=== PATIENT | male | born 1985 | race American Indian/Alaskan Native ===

== ENCOUNTER 2016-04-14 22:06 | Emergency (ER) | payer SELFPAY ==
[2016-04-15 03:07] VITALS: BP 138/83
[2016-04-15] MEDS ORDERED: TORADOL IM STA (03:47)
--- NOTE | 2016-04-15 03:48 | Emergency Department Report ---
ED General Adult HPI - General Chief complaint: High BP Stated complaint: DIZZINESS Source: patient Mode of arrival: Ambulatory Limitations: No Limitations - History of Present Illness Initial comments: This is a 30-year-old male, previously unknown to me. He does not have a local primary care doctor. He has a past medical history of hypertension. He was on HCTZ, but has not taken the medication since October. He ran out of it. Patient presents to the ER with resolved nasal bleeding. The nasal bleeding was in the bilateral nostrils. It was yesterday. He was atraumatic. He denies cocaine use. Patient reports at the nasal bleeding was very distressing, he contacted 911, was found to have elevated blood pressure/ hypertension. This has since resolved. The patient does admit to chronic headache. It has been present for years. The headache is throbbing and achy. He has no exacerbating factors that he can recall, he cannot describe relieving factors. There is no neck pain or neck stiffness. The headache is not sudden or thunderclap in nature. It did not reach maximal intensity within an hour. There is no weakness. There is no numbness. -: Gradual Location: head Severity scale (0 -10): 0 Quality: aching Consistency: intermittent Improves with: none Worsens with: none Associated Symptoms: headaches. denies: confusion, chest pain, cough, diaphoresis, fever/chills, loss of appetite, malaise, nausea/vomiting, rash, seizure, shortness of breath, syncope, weakness - Related Data Previous Rx's Medication Instructions Recorded Last Taken Type Fluticasone [Flonase] 1 spray NS QDAY #1 bottle 04/15/16 Unknown Rx Hydrochlorothiazide [HCTZ] 25 mg PO QDAY #30 tablet 04/15/16 Unknown Rx Allergies Allergy/AdvReac Type Severity Reaction Status Date / Time No Known Allergies Allergy Verified 04/14/16 22:23 ED Review of Systems ROS: Stated complaint: DIZZINESS Other details as noted in HPI Constitutional: denies: fever Eyes: denies: eye discharge ENT: epistaxis Respiratory: denies: cough, shortness of breath, wheezing Cardiovascular: denies: chest pain, palpitations Gastrointestinal: denies: abdominal pain, nausea, diarrhea Genitourinary: denies: urgency, dysuria Musculoskeletal: denies: back pain, joint swelling, arthralgia Skin: denies: rash, lesions Neurological: headache ED Past Medical Hx - Past Medical History Hx Hypertension: Yes Hx Psychiatric Treatment: Yes (Depression) - Surgical History Additional Surgical History: Hernia - Social History Smoking Status: Never Smoker Substance Use Type: Alcohol - Medications Home Medications: Home Medications Medication Instructions Recorded Confirmed Last Taken Type Fluticasone [Flonase] 1 spray NS QDAY #1 bottle 04/15/16 Unknown Rx Hydrochlorothiazide [HCTZ] 25 mg PO QDAY #30 tablet 04/15/16 Unknown Rx ED Physical Exam - General Limitations: No Limitations General appearance: alert, in no apparent distress - Head Head exam: Present: atraumatic, normocephalic - Eye Eye exam: Present: normal appearance, PERRL, EOMI. Absent: nystagmus - ENT ENT exam: Present: normal exam, normal orophraynx, mucous membranes moist - Neck Neck exam: Present: normal inspection, full ROM. Absent: tenderness, meningismus - Respiratory Respiratory exam: Present: normal lung sounds bilaterally. Absent: respiratory distress, wheezes, rales, rhonchi, stridor, chest wall tenderness - Cardiovascular Cardiovascular Exam: Present: regular rate, normal rhythm, normal heart sounds. Absent: bradycardia, tachycardia, irregular rhythm, systolic murmur, diastolic murmur, rubs, gallop - GI/Abdominal GI/Abdominal exam: Present: soft, normal bowel sounds. Absent: distended, tenderness, guarding, rebound, rigid, pulsatile mass - Rectal Rectal exam: Present: deferred - Extremities Exam Extremities exam: Present: normal inspection, full ROM, normal capillary refill. Absent: tenderness, pedal edema, joint swelling, calf tenderness - Back Exam Back exam: Present: normal inspection, full ROM. Absent: tenderness, CVA tenderness (R), CVA tenderness (L), muscle spasm, paraspinal tenderness, vertebral tenderness - Neurological Exam Neurological exam: Present: alert, oriented X3, normal gait, other (Extraocular movements intact. Tongue midline. No facial droop. Facial sensation intact to light touch in the V1, V2, V3 distribution bilaterally. 5 and 5 strength in 4 extremities.. Sensation is intact to light touch in 4 extremities.). Absent : motor sensory deficit - Psychiatric Psychiatric exam: Present: normal affect, normal mood - Skin Skin exam: Present: warm, dry, intact, normal color. Absent: rash ED Course Vital Signs 04/14/16 04/15/16 04/15/16 22:23 01:26 02:23 Temperature 99.1 F 98 F Pulse Rate 72 59 L Respiratory 14 14 Rate Blood Pressure 145/105 Blood Pressure 140/94 [Left] O2 Sat by Pulse 98 100 99 Oximetry 04/15/16 03:07 Temperature Pulse Rate 60 Respiratory 14 Rate Blood Pressure Blood Pressure 138/83 [Left] O2 Sat by Pulse 99 Oximetry - Reevaluation(s) Reevaluation #1: 04/15/16 04:23 04/15/16 04:21 Differential diagnosis: Resolved epistaxis, resolved hypertension, migraine headache, tension headache, cluster headache Assessment and plan: 30-year-old male with multiple chronic complaints. Nasal bleeding has resolved. Hypertension is chronic. Headache is chronic. Hypertension is improved prior to my evaluation. He is sleeping comfortably upon my initial evaluation. He has a GCS of 15, with an NIH score of 0, and an unremarkable physical exam. I will give him a one-month refill for his blood pressure medication. He was instructed that his nasal bleeding may recur. He was instructed on how to manage it by himself he needs to. He will be referred to outpatient primary care. Given chronicity of symptoms, normal neurologic exam, essentially normal vital signs at this time, I don't believe the patient requires advanced imaging ED Medical Decision Making - Lab Data Vital Signs 04/14/16 04/15/16 04/15/16 22:23 01:26 02:23 Temperature 99.1 F 98 F Pulse Rate 72 59 L Respiratory 14 14 Rate Blood Pressure 145/105 Blood Pressure 140/94 [Left] O2 Sat by Pulse 98 100 99 Oximetry 04/15/16 03:07 Temperature Pulse Rate 60 Respiratory 14 Rate Blood Pressure Blood Pressure 138/83 [Left] O2 Sat by Pulse 99 Oximetry Critical care attestation.: If time is entered above; I have spent that time in minutes in the direct care of this critically ill patient, excluding procedure time. ED Disposition Clinical Impression: Elevated blood pressure Disposition: DISCHARGED TO HOME OR SELFCARE Is pt being admited?: No Does the pt Need Aspirin: No Condition: Stable Instructions: Epistaxis (ED), Hypertension (ED) Additional Instructions: Take the medications as directed. Follow-up with the primary care doctor within the next 2 weeks. It is very important to take your outpatient blood pressure medication. Long-term complications of hypertension includes stroke, heart attack, disability, , paralysis, loss of quality of life. Dr. Valdes is local primary care doctor. [facility] medical clinic. Return to the ER right away with severe headache, chest pain, shortness of breath, nausea, vomiting, unsteady gait, change in mental status. Prescriptions: Fluticasone [Flonase] 1 spray NS QDAY #1 bottle Hydrochlorothiazide [HCTZ] 25 mg PO QDAY #30 tablet Referrals: PRIMARY CAREMD [Primary Care Provider] - 3-5 Days MK VALDES MD [Staff Physician] - 3-5 Days [facility] [Provider Group] - 3-5 Days
== END 2016-04-15 04:41 | disposition home or self-care (01) ==
LOC: ED 22:06
DX: I10 Essential (primary) hypertension (principal); R51 Headache
CPT/HCPCS: 96372; 99283; J1885

== ENCOUNTER 2017-02-20 22:40 | Emergency (ER) | payer OTHER ==
[2017-02-21 00:13] LABS: Anion Gap 12 mmol/L; BUN/Creatinine Ratio 9; Blood Urea Nitrogen 10 mg/dL (9-20); Carbon Dioxide 31 mmol/L (22-30); Chloride 100.6 mmol/L (98-107); Glucose 95 mg/dL (75-100); Potassium 3.9 mmol/L (3.6-5.0); Sodium 140 mmol/L (137-145)
[2017-02-21 00:24] LABS: Basophils % (Auto) 0.6 % (0.0-1.8); Eosinophils % (Auto) 1.9 % (0.0-4.3); Hematocrit 46.2 % (35.5-45.6); Hemoglobin 15.3 gm/dl (11.8-15.2); Mean Corpuscular HGB Conc 33 % (32-34); Mean Corpuscular Hemoglobin 31 pg (28-32); Mean Corpuscular Volume 93 fl (84-94); Platelet Count 176 K/mm3 (140-440); Red Blood Count 4.96 M/mm3 (3.65-5.03); Red Cell Distribution Width 13.6 % (13.2-15.2); White Blood Count 5.5 K/mm3 (4.5-11.0)
--- NOTE | 2017-02-21 06:25 | Emergency Department Report ---
HPI - General Chief Complaint: Syncope Time Seen by Provider: 02/21/17 06:02 - HPI HPI: This is a 31-year-old -[place] male who presents to the emergency department after passing out at work. This was witnessed by 3 other coworkers who helped get him off of the ground. Prior passing out the patient felt like he was a little bit lightheaded and therefore went and ate some food thinking maybe he was having low blood sugar. He was also slightly dizzy after passing out but that has since resolved. He did not take anything for his symptoms prior to presentation. Currently the patient is asymptomatic. While he has not had any headache today or last night in conjunction with this episode of passing out, the patient does say that he has a history now of left-sided headaches that occur 2-3 times per week. He denies any vision change, slurred speech, chest pain, shortness of breath, fever. He does not have a primary care physician. He denies tobacco or alcohol abuse. Occasionally he'll smoke marijuana. No recent travel or sick contacts at home. ED Past Medical Hx - Past Medical History Hx Hypertension: Yes Hx Psychiatric Treatment: Yes (Depression) - Surgical History Additional Surgical History: Hernia - Social History Smoking Status: Never Smoker Substance Use Type: None - Medications Home Medications: Home Medications Medication Instructions Recorded Confirmed Last Taken Type Fluticasone [Flonase] 1 spray NS QDAY #1 bottle 04/15/16 Unknown Rx Hydrochlorothiazide [HCTZ] 25 mg PO QDAY #30 tablet 04/15/16 Unknown Rx ED Review of Systems ROS: Stated complaint: SYNCOPY Other details as noted in HPI Comment: All other systems reviewed and negative Constitutional: denies: chills, fever Eyes: denies: eye pain, eye discharge, vision change ENT: denies: ear pain, throat pain Respiratory: denies: cough, shortness of breath, wheezing Cardiovascular: syncope. denies: chest pain, palpitations Gastrointestinal: denies: abdominal pain, nausea, diarrhea Genitourinary: denies: urgency, dysuria Musculoskeletal: denies: back pain, joint swelling, arthralgia Skin: denies: rash, lesions Neurological: denies: numbness, confusion, vertigo Physical Exam - Physical Exam Vital Signs: Vital Signs 02/20/17 23:24 Temperature 98.5 F Pulse Rate 80 Respiratory 18 Rate Blood Pressure 136/76 O2 Sat by Pulse 98 Oximetry Physical Exam: GENERAL: The patient is well-developed well-nourished. HENT: Normocephalic. Atraumatic. Patient has moist mucous membranes. EYES: Extraocular motions are intact. Pupils equal reactive to light bilaterally. No nystagmus. NECK: Supple. Trachea is midline. CHEST/LUNGS: Clear to auscultation. There is no respiratory distress noted. HEART/CARDIOVASCULAR: Regular. There is no tachycardia. There is no gallop rub or murmur. ABDOMEN: Abdomen is soft, nontender. Patient has normal bowel sounds. There is no abdominal distention. SKIN: Skin is warm and dry. NEURO: The patient is awake, alert, and oriented. The patient is cooperative. The patient has no focal neurologic deficits. The patient has normal speech. Cranial nerves intact 2 through 12. The pronator drift. No dysmetria. Normal gait. MUSCULOSKELETAL: There is no tenderness or deformity. There is no limitation range of motion. There is no evidence of acute injury. Muscle strength 5/5 upper and lower extremity bilaterally. ED Course Vital Signs 02/20/17 23:24 Temperature 98.5 F Pulse Rate 80 Respiratory 18 Rate Blood Pressure 136/76 O2 Sat by Pulse 98 Oximetry ED Medical Decision Making - Lab Data Result diagrams: 02/20/17 23:38 02/20/17 23:38 - EKG Data -: EKG Interpreted by Fl EKG shows normal: sinus rhythm, axis, intervals, QRS complexes, ST-T waves Rate: normal - EKG Data When compared to previous EKG there are: previous EKG unavailable Interpretation: normal EKG - Radiology Data Radiology results: report reviewed CT of the head does not show any acute intracranial process including no ischemia, shift, mass, bleeding or skull fracture. - Medical Decision Making 31-year-old male presents after having a syncopal episode at work tonight. Although he did not have a headache leading up to this episode, he does complain of some intermittent left-sided headaches. He has never been diagnosed with migraines or any other headache conditions. On physical exam he does not have any focal, motor or sensory deficits and his cranial nerves are intact. A CT of the head was done that did not show any bleed, shift, mass or any acute process. Labs are unremarkable and do not show any etiology of his symptoms. Vital signs stable throughout his ED course. He has been reevaluated multiple times for multiple hours and there has been no further syncopal episodes. He appears safe for discharge home at this time. He'll be given a referral for primary care and neurology. He will return to the ER with any worsening of his symptoms or any acute distress. Discharge instructions were given while in the emergency department and all questions have been answered. - Differential Diagnosis migraine, vasovagal, orthostatic hypotension, seizure Critical Care Time: No Critical care attestation.: If time is entered above; I have spent that time in minutes in the direct care of this critically ill patient, excluding procedure time. ED Disposition Clinical Impression: Syncope Qualifiers: Syncope type: unspecified Qualified Code(s): R55 - Syncope and collapse Disposition: TO HOME OR SELFCARE Is pt being admited?: No Condition: Stable Instructions: Syncope (ED) Additional Instructions: Follow-up with a primary care physician in the next few days if possible. I have given you a referral for a local neurologist, Dr. Knight, to follow up regarding your recurrent headaches. Return to the emergency department with any further episodes of passing out or with any acute distress. Referrals: DANGELO BUITRAGO MD [Primary Care Provider] - 3-5 Days KARYNA BOTELLO MD [Referring] - 3-5 Days MITCHELL KNIGHT MD [Staff Physician] - 3-5 Days Forms: Work/School Release Form(ED) Time of Disposition: 07:32
[2017-02-21 06:37] LABS: Bilirubin,Urine NEG (Negative); Blood,Urine SM (Negative); Ketones,Urine NEG (Negative); Leukocyte Esterase,Urine NEG (Negative); Mucus,Urine FEW /HPF; Nitrite,Urine NEG (Negative); Protein,Urine <15 mg/dL mg/dL (Negative); Urobilinogen,Urine < 2.0 mg/dL (<2.0)
--- NOTE | 2017-02-21 07:21 | Cat Scan Report ---
FINAL REPORT EXAM: CT HEAD/BRAIN W/O CONTRAST HISTORY: Headache, Syncope. TECHNIQUE: Unenhanced axial CT images of the brain were obtained. No prior studies are available for comparison. FINDINGS: The cortical sulci and ventricles are within normal limits for patient's age. The rios-white differentiation is maintained. There is no extra-axial fluid collection, mass, mass effect, midline shift, hydrocephalus, or acute intracranial hemorrhage. There is a 0.8 cm mucous retention cyst or polyp in the left frontal sinus. The remainder of the visualized paranasal sinuses and mastoid air cells are clear. There is no skull fracture or other osseous abnormality. The visualized orbits and globes are grossly unremarkable. IMPRESSION: No acute intracranial abnormality.
[2017-02-21 07:55] VITALS: BP 117/63
== END 2017-02-21 07:48 | disposition home or self-care (01) ==
LOC: ED 22:40
DX: R55 Syncope and collapse (principal); I10 Essential (primary) hypertension
CPT/HCPCS: 36415; 70450; 80048; 81001; 84484; 85025; 93005; 93010

== ENCOUNTER 2017-06-08 09:45 | Emergency (ER) | payer OTHER ==
[2017-06-08 10:18] VITALS: BP 130/91
--- NOTE | 2017-06-08 12:02 | Emergency Department Report ---
Minor Respiratory - HPI Chief Complaint: Upper Respiratory Infection Stated Complaint: FLU LIKE SYMPTOMS Time Seen by Provider: 06/08/17 10:29 Duration: 3 Days Pain Location: Throat (sore) Severity: mild Minor Respiratory: Yes Rhinorrhea, Yes Sore Throat, Yes Able to Tolerate Fluids , Yes Cough, Yes Sick Contacts, Yes Fever, No Ear Pain, No Hemoptysis, No Chest Pain, No Shortness of Breath Other History: This is a 31 y.o. male that presents with cough, rhinorrhea, fever, sore throat, and chills for 3 days. Reports cough cause chest tightness but no pain. He is currently not taking anything for symptoms. He is eating oranges and increase fluids but still feel bad. Denies chest pain, SOB, body aches, and N/V. ED Review of Systems ROS: Stated complaint: FLU LIKE SYMPTOMS Other details as noted in HPI Constitutional: chills, fever. denies: diaphoresis, malaise, weakness ENT: throat pain (sore throat), congestion. denies: ear pain, dental pain, hearing loss, epistaxis Respiratory: cough. denies: shortness of breath, wheezing Cardiovascular: denies: chest pain, palpitations Gastrointestinal: denies: abdominal pain, nausea, vomiting, diarrhea Musculoskeletal: denies: back pain, joint swelling, arthralgia, myalgia Neurological: headache. denies: weakness, paresthesias Psychiatric: denies: anxiety, depression ED Past Medical Hx - Past Medical History Hx Hypertension: Yes Hx Psychiatric Treatment: Yes (Depression) - Surgical History Additional Surgical History: Hernia - Social History Smoking Status: Never Smoker Substance Use Type: Marijuana - Medications Home Medications: Home Medications Medication Instructions Recorded Confirmed Last Taken Type Fluticasone [Flonase] 1 spray NS QDAY #1 bottle 04/15/16 Unknown Rx Hydrochlorothiazide [HCTZ] 25 mg PO QDAY #30 tablet 04/15/16 Unknown Rx Benzonatate 200 mg PO TID PRN #30 capsule 06/08/17 Unknown Rx Fluticasone [Flonase] 1 spray NS QDAY #1 bottle 06/08/17 Unknown Rx Minor Respiratory Exam - Exam General: Vital signs noted. No distress. Alert and acting appropriately. HEENT: Yes Pharyngeal Erythema, Yes Moist Mucous Membranes, Yes Rhinorrhea ( clear discharge), No Pharyngeal Exudates, No Conjuctival Injection, No Frontal Tenderness, No Maxillary Tenderness Ear: Neither TM Bulge, Neither TM Erythema, Neither EAC Pain, Neither EAC Discharge Neck: Yes Supple, No Adenopathy Lungs: Yes Good Air Exchange, Yes Cough (worse on right), No Wheezes, No Ronchi , No Stridor, No Labored Respirations, No Retractions, No Use of Accessory Muscles, No Other Abnormal Lung Sounds Heart: Yes Regular, No Murmur Abdomen: Yes Normal Bowel Sounds, No Tenderness, No Peritoneal Signs Skin: No Rash, No Edema Neurologic: Alert and oriented, no deficits. Musculoskeletal: Unremarkable. ED Course Vital Signs 06/08/17 10:14 Temperature 99 F Pulse Rate 89 Respiratory 20 Rate Blood Pressure 130/91 O2 Sat by Pulse 95 Oximetry ED Medical Decision Making - Medical Decision Making 31 y.o. male that presents with URI symptoms. Patient examined by me and stable. No distress noted. Physical assessment susceptible of nasopharyngitis. Vitals stable. Discharged home. Encouraged to do supportive care for URI. Start benzonatate 200 mg po tid PRN, and flonase. Return to work tomorrow. Critical care attestation.: If time is entered above; I have spent that time in minutes in the direct care of this critically ill patient, excluding procedure time. ED Disposition Clinical Impression: Upper respiratory infection Qualifiers: URI type: acute nasopharyngitis (common cold) Qualified Code(s): J00 - Acute nasopharyngitis [common cold] Disposition: TO HOME OR SELFCARE Is pt being admited?: No Does the pt Need Aspirin: No Condition: Stable Instructions: Upper Respiratory Infection (ED), Cold Symptoms (ED) Additional Instructions: Increase fluid intake and rest. Wash hands frequently. Continue taking tylenol or ibuprofen to control fever. F/U with Primary Care Provider. Return to ER if fever, SOB, or difficulty breathing after 48 hours of supportive care. Prescriptions: Benzonatate 200 mg PO TID PRN #30 capsule PRN Reason: Cough Fluticasone [Flonase] 1 spray NS QDAY #1 bottle Referrals: [facility] [address] [Outside] - 3-5 Days [facility] [Outside] - 3-5 Days [facility] [Outside] - 3-5 Days Forms: Work/School Release Form(ED) Time of Disposition: 12:06 Print Language: LEBANESE
== END 2017-06-08 12:21 | disposition home or self-care (01) ==
LOC: ED 09:45
DX: J00 Acute nasopharyngitis [common cold] (principal); I10 Essential (primary) hypertension; F12.10 Cannabis abuse, uncomplicated; F32.9 Major depressive disorder, single episode, unspecified
CPT/HCPCS: 99282

== ENCOUNTER 2017-06-26 21:03 | Emergency (ER) | payer OTHER ==
[2017-06-26] MEDS ORDERED: ASPIRIN PO ONE (21:16)
[2017-06-26 21:36] LABS: Basophils % (Auto) 0.2 % (0.0-1.8); Eosinophils # (Auto) 0.1 K/mm3 (0.0-0.4); Eosinophils % (Auto) 1.5 % (0.0-4.3); Hematocrit 51.1 % (35.5-45.6); Hemoglobin 16.7 gm/dl (11.8-15.2); Lymphocytes # (Auto) 1.3 K/mm3 (1.2-5.4); Lymphocytes % (Auto) 16.9 % (13.4-35.0); Mean Corpuscular HGB Conc 33 % (32-34); Mean Corpuscular Hemoglobin 31 pg (28-32); Mean Corpuscular Volume 93 fl (84-94); Monocytes # (Auto) 0.6 K/mm3 (0.0-0.8); Monocytes % (Auto) 7.9 % (0.0-7.3); Platelet Count 181 K/mm3 (140-440); Red Blood Count 5.47 M/mm3 (3.65-5.03); Red Cell Distribution Width 14.2 % (13.2-15.2)
[2017-06-26] MEDS ORDERED: NACL 0.9% 1000 ML 1,000 ML IV ONE (21:49)
[2017-06-26] MEDS ORDERED: APRESOLINE IV ONE (21:49)
[2017-06-26 21:53] LABS: Alanine Aminotransferase 19 units/L (7-56); Albumin 4.4 g/dL (3.9-5); BUN/Creatinine Ratio 9; Blood Urea Nitrogen 11 mg/dL (9-20); Calcium 9.2 mg/dL (8.4-10.2); Hemolysis Index 11
[2017-06-26 22:11] VITALS: BP 141/85
[2017-06-27 00:24] LABS: Bilirubin,Urine NEG (Negative); Blood,Urine NEG (Negative); Color,Urine Straw (Yellow); Protein,Urine <15 mg/dL mg/dL (Negative); Urobilinogen,Urine < 2.0 mg/dL (<2.0)
--- NOTE | 2017-06-27 00:38 | Emergency Department Report ---
HPI - General Chief Complaint: Syncope Time Seen by Provider: 06/26/17 21:35 - HPI HPI: The patient is a 31-year-old male who presents for evaluation of dizziness and lightheadedness. The patient states that since awakening this morning at 8 AM, approximately 12 hours prior to my evaluation, the patient has experienced waxing and waning lightheadedness, severe, exacerbated with position changes or exertion, and improved with lying down and rest. He shares that he passed out this evening after the symptoms recurred. He also passed out in the ED lobby while waiting evaluation, but he denies trauma to his head, head injury, headache, neck pain, neck stiffness, back pain, chest pain, dyspnea, abdominal pain, vision or hearing changes, smell or taste changes, paresthesias, facial drooping, slurred speech, seizure-like activity, urine or bowel incontinence or retention, or other focal neurological deficit. ED Past Medical Hx - Past Medical History Previous Medical History?: Yes Hx Hypertension: Yes Hx Diabetes: Yes (boderline) Hx Psychiatric Treatment: Yes (Depression) - Surgical History Past Surgical History?: Yes Additional Surgical History: Hernia - Social History Smoking Status: Never Smoker Substance Use Type: Marijuana - Medications Home Medications: Home Medications Medication Instructions Recorded Confirmed Last Taken Type Fluticasone [Flonase] 1 spray NS QDAY #1 bottle 04/15/16 Unknown Rx Hydrochlorothiazide [HCTZ] 25 mg PO QDAY #30 tablet 04/15/16 Unknown Rx Benzonatate 200 mg PO TID PRN #30 capsule 06/08/17 Unknown Rx Fluticasone [Flonase] 1 spray NS QDAY #1 bottle 06/08/17 Unknown Rx Hydrochlorothiazide [HCTZ] 25 mg PO QDAY #30 tablet 06/27/17 Unknown Rx Lisinopril [Zestril TAB] 5 mg PO QDAY #31 tablet 06/27/17 Unknown Rx ED Review of Systems ROS: Stated complaint: SYNCOPE Other details as noted in HPI Constitutional: Reports dizziness and syncope denies: fever ENT: denies: throat or neck pain Respiratory: denies: cough, shortness of breath Cardiovascular: denies: chest pain Endocrine: denies unexplained weight loss or gain Gastrointestinal: denies: abdominal pain, nausea Genitourinary: denies: dysuria Musculoskeletal: denies: leg swelling Skin: denies: rash Neurological: denies: headache Hematological/Lymphatic: denies: easy bleeding or easy bruising Psych: denies sadness or hopelessness Physical Exam - Physical Exam Vital Signs: Vital Signs 06/26/17 06/26/17 21:12 22:10 Temperature 98.2 F Pulse Rate 82 85 Respiratory 18 16 Rate Blood Pressure 154/104 Blood Pressure 141/85 [Left] O2 Sat by Pulse 100 100 Oximetry Physical Exam: General: well-nourished, well-developed, no acute distress Head: Normocephalic, atraumatic Eyes: normal sclera, PERRL, EOM intact ENT: Mucous membranes are pale and dry Neck: No neck stiffness, no cervical adenopathy Respiratory: Breath sounds equal bilaterally, no wheezing, rales, or rhonchi Cardio: S1 and S2 present, no murmurs, rubs, gallops, capillary refill is delayed Abdomen: Normoactive bowel sounds, soft abdomen, no rigidity, no guarding or rebound tenderness Chest WALL/Back: No tenderness to palpation of the chest wall, no CVA tenderness with percussion Musc: No pitting edema Skin: No rash Neuro: alert oriented x4, normal cognition, speech normal, no facial drooping, no uvula or tongue deviation on protrusion, no deficit with rotation of neck or shoulder shrug, no obvious gross motor deficit in the upper or lower extremities with flexion or extension at the shoulder, elbow, wrist, hip, knee, or ankle bilaterally, no obvious gross sensation deficit to crude touch or 2 pt discrimination, 2+ symmetric reflexes on DTR testing, no coordination deficit with [id number] or [id number] testing, romberg negative, patient able to to ambulate without abnormal gait Psych: Normal affect ED Course Vital Signs 06/26/17 06/26/17 21:12 22:10 Temperature 98.2 F Pulse Rate 82 85 Respiratory 18 16 Rate Blood Pressure 154/104 Blood Pressure 141/85 [Left] O2 Sat by Pulse 100 100 Oximetry ED Medical Decision Making - Lab Data Result diagrams: 06/26/17 21:22 06/26/17 21:22 - Medical Decision Making The patient was seen and examined by myself. The patient is placed on a cardiac rehabilitation program director and continuous pulse ox. On initial evaluation, the patient was found to be in no distress. Evaluation orders were placed. EKG exhibited normal sinus rhythm and rate, and was negative for concerning arrhythmia. Lab results reveal elevated RBC, hemoglobin, and hematocrit, consistent with hemoconcentration and exam findings of dehydration, and otherwise labs were grossly unremarkable. The patient is given 1 L normal saline fluid bolus for treatment of dehydration. The patient was reevaluated and reported that their symptoms were markedly improved. The patient is stable for discharge with outpatient follow-up. The patient is given follow-up and return instructions. The patient expressed understanding and agreed with the plan. The patient is discharged in stable condition. Critical care attestation.: If time is entered above; I have spent that time in minutes in the direct care of this critically ill patient, excluding procedure time. ED Disposition Clinical Impression: Dehydration, Orthostatic syncope Disposition: DC-01 TO HOME OR SELFCARE Is pt being admited?: No Does the pt Need Aspirin: No Condition: Stable Instructions: Dehydration (ED), Syncope (ED), Chronic Hypertension (ED) Prescriptions: Hydrochlorothiazide [HCTZ] 25 mg PO QDAY #30 tablet Lisinopril [Zestril TAB] 5 mg PO QDAY #31 tablet Referrals: CHAYO PADGETT MD [Primary Care Provider] - 3-5 Days Time of Disposition: 00:04
== END 2017-06-27 01:15 | disposition home or self-care (01) ==
LOC: ED 21:03
DX: E86.0 Dehydration (principal); I10 Essential (primary) hypertension; E11.9 Type 2 diabetes mellitus without complications; F12.10 Cannabis abuse, uncomplicated
CPT/HCPCS: 36415; 80053; 81001; 82962; 83690; 84484; 85025; 93005; 93010; 96360; 99284; J0360; J7030

== ENCOUNTER 2017-07-14 21:04 | Emergency (ER) | payer OTHER ==
[2017-07-14] MEDS ORDERED: TYLENOL PO ONE (21:32)
[2017-07-14] MEDS ORDERED: TYLENOL ONE (21:33)
--- NOTE | 2017-07-14 23:04 | XRay Report ---
FINAL REPORT EXAM: XR CHEST ROUTINE 2V HISTORY: chest hurts when coughing TECHNIQUE: PA and lateral views of the chest PRIORS: None. FINDINGS: Lines, tubes, and devices: N/A Lungs and pleura: Trachea is normal in position. Lungs are clear of infiltrate, pleural effusion, vascular congestion, or pneumothorax. Cardiomediastinal silhouette: Cardiac and mediastinal silhouettes are unremarkable. Other: Bony structures are intact. IMPRESSION: No acute cardiopulmonary process seen.
--- NOTE | 2017-07-15 04:22 | Emergency Department Report ---
- General Chief Complaint: Upper Respiratory Infection Stated Complaint: URI SX; LT EYE IRRITATION Time Seen by Provider: 07/15/17 04:18 Source: patient Mode of arrival: Ambulatory Limitations: No Limitations - History of Present Illness Initial Comments: 31-year-old -[place] male comes to the emergency room complaining of coughing and when he coughs feels like his lungs are hurting this is been going on for 2 weeks. Patient also reports left eye irritation when he woke up this eye lashes was matted together and having purulent discharge from the right eye. Patient reports this started on Monday. Patient reports he has had a cough or wheezing and had a fever in the beginning of his symptoms. Patient denies any runny nose or sore throat and nasal congestion or rhinorrhea no sneezing. He reports a past medical history of hypertension he takes HCTZ. MD Complaint: cough -: week(s) (2) Severity: severe Severity scale (0 -10): 8 Quality: sharp (right upper chest when coughing) Consistency: intermittent Improves With: nothing Associated Symptoms: denies other symptoms Treatments Prior to Arrival: none - Related Data Previous Rx's Medication Instructions Recorded Last Taken Type Fluticasone [Flonase] 1 spray NS QDAY #1 bottle 04/15/16 Unknown Rx Hydrochlorothiazide [HCTZ] 25 mg PO QDAY #30 tablet 04/15/16 Unknown Rx Fluticasone [Flonase] 1 spray NS QDAY #1 bottle 06/08/17 Unknown Rx Hydrochlorothiazide [HCTZ] 25 mg PO QDAY #30 tablet 06/27/17 Unknown Rx Lisinopril [Zestril TAB] 5 mg PO QDAY #31 tablet 06/27/17 Unknown Rx Benzonatate 200 mg PO TID PRN #30 capsule 07/15/17 Unknown Rx Erythromycin [Erythromycin Ophth 10 applic OP QID #1 tube 07/15/17 Unknown Rx Oint] Ibuprofen [Motrin 800 MG tab] 800 mg PO Q8HR PRN #30 tablet 07/15/17 Unknown Rx Allergies Allergy/AdvReac Type Severity Reaction Status Date / Time No Known Allergies Allergy Verified 06/08/17 10:14 ED Review of Systems ROS: Stated complaint: URI SX; LT EYE IRRITATION Other details as noted in HPI Constitutional: denies: chills, fever Eyes: eye discharge ENT: denies: ear pain, throat pain Respiratory: cough Cardiovascular: denies: chest pain, palpitations Endocrine: no symptoms reported Gastrointestinal: denies: abdominal pain, nausea, diarrhea Genitourinary: denies: urgency, dysuria Musculoskeletal: denies: back pain, joint swelling, arthralgia Skin: denies: rash, lesions Neurological: denies: headache, weakness, paresthesias Psychiatric: denies: anxiety, depression Hematological/Lymphatic: denies: easy bleeding, easy bruising ED Past Medical Hx - Past Medical History Previous Medical History?: Yes Hx Hypertension: Yes Hx Diabetes: Yes (boderline) Hx Psychiatric Treatment: Yes (Depression) - Surgical History Past Surgical History?: Yes Additional Surgical History: Hernia - Social History Smoking Status: Former Smoker Substance Use Type: Alcohol, Marijuana - Medications Home Medications: Home Medications Medication Instructions Recorded Confirmed Last Taken Type Fluticasone [Flonase] 1 spray NS QDAY #1 bottle 04/15/16 Unknown Rx Hydrochlorothiazide [HCTZ] 25 mg PO QDAY #30 tablet 04/15/16 Unknown Rx Fluticasone [Flonase] 1 spray NS QDAY #1 bottle 06/08/17 Unknown Rx Hydrochlorothiazide [HCTZ] 25 mg PO QDAY #30 tablet 06/27/17 Unknown Rx Lisinopril [Zestril TAB] 5 mg PO QDAY #31 tablet 06/27/17 Unknown Rx Benzonatate 200 mg PO TID PRN #30 capsule 07/15/17 Unknown Rx Erythromycin [Erythromycin Ophth 10 applic OP QID #1 tube 07/15/17 Unknown Rx Oint] Ibuprofen [Motrin 800 MG tab] 800 mg PO Q8HR PRN #30 tablet 07/15/17 Unknown Rx ED Physical Exam - General Limitations: No Limitations General appearance: alert, in no apparent distress - Head Head exam: Present: atraumatic, normocephalic - Eye Eye exam: Present: conjunctival injection - ENT ENT exam: Present: mucous membranes moist - Neck Neck exam: Present: normal inspection - Respiratory Respiratory exam: Present: normal lung sounds bilaterally. Absent: respiratory distress - Cardiovascular Cardiovascular Exam: Present: regular rate, normal rhythm. Absent: systolic murmur, diastolic murmur, rubs, gallop - GI/Abdominal GI/Abdominal exam: Present: soft, normal bowel sounds - Rectal Rectal exam: Present: deferred - Extremities Exam Extremities exam: Present: normal inspection - Back Exam Back exam: Present: normal inspection - Neurological Exam Neurological exam: Present: alert, oriented X3 - Psychiatric Psychiatric exam: Present: normal affect, normal mood - Skin Skin exam: Present: warm, dry, intact, normal color. Absent: rash ED Course Vital Signs 07/14/17 21:25 Temperature 99.2 F Pulse Rate 81 Blood Pressure 125/85 O2 Sat by Pulse 97 Oximetry ED Medical Decision Making - Radiology Data Radiology results: report reviewed, image reviewed IMPRESSION: No acute cardiopulmonary process seen. Transcribed By: [facility] Dictated By: LUBNA BETANCUR MD Electronically Authenticated By: LUBNA BETANCUR MD Signed Date/Time: 07/14/17 0296 - Medical Decision Making Patient has been evaluated by this provider fast track. Chest x-ray was done which is normal examination. Discussed the patient I'll give him Tessalon Perles for cough, place him on erythromycin ointment for his conjunctivitis. Patient is to follow with the primary care provider if symptoms persist or gets worse. She verbalized understanding Critical care attestation.: If time is entered above; I have spent that time in minutes in the direct care of this critically ill patient, excluding procedure time. ED Disposition Clinical Impression: Cough Conjunctivitis Qualifiers: Conjunctivitis type: acute Acute conjunctivitis type: unspecified Laterality: left Qualified Code(s): H10.32 - Unspecified acute conjunctivitis, left eye Disposition: DC-01 TO HOME OR SELFCARE Is pt being admited?: No Does the pt Need Aspirin: No Condition: Stable Instructions: Conjunctivitis (ED), Antitussives (By mouth) Additional Instructions: Take medication as prescribed. Follow up with her primary care provider if symptoms persist or gets worse. Prescriptions: Benzonatate 200 mg PO TID PRN #30 capsule PRN Reason: Cough Erythromycin [Erythromycin Ophth Oint] 10 applic OP QID #1 tube Ibuprofen [Motrin 800 MG tab] 800 mg PO Q8HR PRN #30 tablet PRN Reason: Pain Referrals: PRIMARY CARE, [Primary Care Provider] - 3-5 Days Forms: Work/School Release Form(ED)
[2017-07-15 06:03] VITALS: BP 128/81
== END 2017-07-15 04:31 | disposition home or self-care (01) ==
LOC: ED 21:04
DX: H10.9 Unspecified conjunctivitis (principal); R05 Cough; I10 Essential (primary) hypertension; F12.10 Cannabis abuse, uncomplicated; Z87.891 Personal history of nicotine dependence
CPT/HCPCS: 71046; 99283

== ENCOUNTER 2018-11-06 09:26 | Emergency (ER) | payer OTHER ==
[2018-11-06 09:54] VITALS: BP 135/95
[2018-11-06] MEDS ORDERED: FUL-GLO OP ONE (11:02)
[2018-11-06] MEDS ORDERED: TETRACAINE 0.5% OD ONE (11:02)
--- NOTE | 2018-11-06 11:07 | Emergency Department Report ---
HPI - General Chief Complaint: Eye Problems Time Seen by Provider: 11/06/18 10:50 - HPI HPI: 33-year-old -[place] male presents to the emergency department with a complaint of a 4-5 day history of right eye pain, redness and some blurry vision. 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 He has not taken any medication or tried any treatment for his symptoms prior to presentation. Patient has a history of hypertension and borderline diabetes. He does not have a primary care physician. ED Past Medical Hx - Past Medical History Previous Medical History?: Yes Hx Hypertension: Yes Hx Diabetes: Yes (boderline) Hx Psychiatric Treatment: Yes (Depression) - Surgical History Past Surgical History?: Yes Additional Surgical History: Hernia - Social History Smoking Status: Never Smoker Substance Use Type: Marijuana - Medications Home Medications: Home Medications Medication Instructions Recorded Confirmed Last Taken Type Fluticasone [Flonase] 1 spray NS QDAY #1 bottle 04/15/16 Unknown Rx hydroCHLOROthiazide [HCTZ] 25 mg PO QDAY #30 tablet 04/15/16 Unknown Rx Fluticasone [Flonase] 1 spray NS QDAY #1 bottle 06/08/17 Unknown Rx Lisinopril [Zestril TAB] 5 mg PO QDAY #31 tablet 06/27/17 Unknown Rx hydroCHLOROthiazide [HCTZ] 25 mg PO QDAY #30 tablet 06/27/17 Unknown Rx Benzonatate 200 mg PO TID PRN #30 capsule 07/15/17 Unknown Rx Erythromycin [Erythromycin Ophth 10 applic OP QID #1 tube 07/15/17 Unknown Rx Oint] Ibuprofen [Motrin 800 MG tab] 800 mg PO Q8HR PRN #30 tablet 07/15/17 Unknown Rx Prednisolone Acetate/Pf 5 ml OD Q3H #1 bottle 11/06/18 Unknown Rx [Prednisolone Acet 1% Eye Drop] ED Review of Systems ROS: Stated complaint: RT EYE INJURY Other details as noted in HPI Comment: All other systems reviewed and negative Constitutional: denies: chills, fever Eyes: eye pain, vision change Skin: denies: rash, lesions Neurological: denies: headache, weakness Physical Exam - Physical Exam Vital Signs: Vital Signs 11/06/18 09:49 Temperature 98.4 F Pulse Rate 67 Respiratory 18 Rate Blood Pressure 135/95 O2 Sat by Pulse 100 Oximetry Physical Exam: GENERAL: The patient is well-developed well-nourished. HENT: Normocephalic. Atraumatic. Patient has moist mucous membranes. EYES: Extraocular motions are intact. Pupils equal reactive to light bila terally. The right conjunctiva is diffusely injected. No fluorescein uptake seen with Wood's lamp. Visual acuity: OD 20/25, OS 20/25, both eyes 20/20. Right ocular pressure is an average of 17. NECK: Supple. Trachea is midline. CHEST/LUNGS: Clear to auscultation. There is no respiratory distress noted. HEART/CARDIOVASCULAR: Regular. There is no tachycardia. There is no murmur. ABDOMEN: There is no abdominal distention. SKIN: Skin is warm and dry. NEURO: The patient is awake, alert, and oriented. The patient is cooperative. The patient has no focal neurologic deficits. No slurred speech. MUSCULOSKELETAL: There is no tenderness or deformity. There is no evidence of acute injury. ED Course Vital Signs 11/06/18 09:49 Temperature 98.4 F Pulse Rate 67 Respiratory 18 Rate Blood Pressure 135/95 O2 Sat by Pulse 100 Oximetry - Consultations Consultation #1: 11/06/18 13:24 I spoke with an mechanical research engineer, Dr. Eh Freedman, listened to the case presentation and feels that the symptoms may be related to an iritis. He has agreed to see the patient today if the patient is willing to do so. Otherwise he says that the patient does need to see an mechanical research engineer in the next few days and the patient should be placed on prednisolone acetate 1% to be used every few hours while awake. ED Medical Decision Making - Medical Decision Making Patient presents with a 4-5 day history of some right eye pain and redness after some external trauma to that eye. His visual acuity is good although he describes some blurry vision. There was no fluorescein uptake seen with Wood lamp. Ocular pressure in the right eye was an average of 17. He has full extraocular range of motion. The pupils are equal and reactive. No signs of any obvious trauma. I spoke with ophthalmology who says that this appears consistent with an iritis and recommends ophthalmology follow-up. The patient was given the opportunity to follow up this afternoon with ophthalmology but he says that he does not have the transportation available and will go first thing in the morning. In the meantime, the patient has been placed on prednisolone acetate 1% drops to be used every few hours while awake. He will return to the emergency Department with any worsening of his symptoms or any acute distress. - Differential Diagnosis iritis, conjunctivitis, corneal abrasion, globe rupture Critical Care Time: No Critical care attestation.: If time is entered above; I have spent that time in minutes in the direct care of this critically ill patient, excluding procedure time. ED Disposition Clinical Impression: Iritis, Pain in right eye Disposition: DC-01 TO HOME OR SELFCARE Is pt being admited?: No Condition: Stable Instructions: Iritis (ED), Eye Pain (ED) Additional Instructions: Please follow up as soon as possible with the mechanical research engineer regarding your right eye pain. I am giving you a referral for a local mechanical research engineer, Dr. Freedman. Please start using the steroid eyedrop prescribed, as prescribed, until follow-up with the mechanical research engineer. Return to the emergency department with any worsening of your symptoms or any acute distress. Prescriptions: Prednisolone Acetate/Pf [Prednisolone Acet 1% Eye Drop] 5 ml OD Q3H #1 bottle Referrals: EH FREEDMAN MD [Staff Physician] - [facility] Forms: Work/School Release Form(ED)
== END 2018-11-06 12:20 | disposition home or self-care (01) ==
LOC: ED 09:26
DX: H20.00 Unspecified acute and subacute iridocyclitis (principal)

== ENCOUNTER 2021-08-25 13:42 | Emergency (ER) | payer SELFPAY ==
[2021-08-25 21:21] VITALS: BP 152/95
[2021-08-25] MEDS ORDERED: dexAMETHasone 4 MG/ML VIAL IM ONE (22:06)
[2021-08-25] MEDS ORDERED: PENICILLIN G BENZATHINE 1.2 MILLION UNIT/2 ML INJ IM STA (22:06)
--- NOTE | 2021-08-25 22:30 | Emergency Department Report ---
ED ENT HPI - General Chief complaint: Sore Throat Stated complaint: THROAT PAIN Time Seen by Provider: 08/25/21 21:47 Source: patient Mode of arrival: Ambulatory Limitations: No Limitations - History of Present Illness MD complaint: sore throat -: Gradual, days(s) (1) Location: throat Severity: moderate Quality: dull Consistency: constant Improves with: none Worsens with: swallowing, eating Associated Symptoms: pain with swallowing, sore throat. denies: cough, gum swelling, tinnitus, discharge from ear, rhinorrhea - Related Data Previous Rx's Medication Instructions Recorded Last Taken Type Fluticasone [Flonase] 1 spray NS QDAY #1 bottle 04/15/16 Unknown Rx hydroCHLOROthiazide [HCTZ] 25 mg PO QDAY #30 tablet 04/15/16 Unknown Rx Fluticasone [Flonase] 1 spray NS QDAY #1 bottle 06/08/17 Unknown Rx hydroCHLOROthiazide [HCTZ] 25 mg PO QDAY #30 tablet 06/27/17 Unknown Rx lisinopriL [Zestril TAB] 5 mg PO QDAY #31 tablet 06/27/17 Unknown Rx Benzonatate 200 mg PO TID PRN #30 capsule 07/15/17 Unknown Rx Erythromycin [Erythromycin Ophth 10 applic OP QID #1 tube 07/15/17 Unknown Rx Oint] Ibuprofen [Motrin 800 MG tab] 800 mg PO Q8HR PRN #30 tablet 07/15/17 Unknown Rx Prednisolone Acetate/Pf 5 ml OD Q3H #1 bottle 11/06/18 Unknown Rx [Prednisolone Acet 1% Eye Drop] Lidocaine Viscous 2% 5 ml MM Q3H PRN #120 udc 08/25/21 Unknown Rx Allergies Allergy/AdvReac Type Severity Reaction Status Date / Time No Known Allergies Allergy Verified 06/08/17 10:14 ED Dental HPI - General Chief complaint: Sore Throat Stated complaint: THROAT PAIN Time Seen by Provider: 08/25/21 21:47 Source: patient Mode of arrival: Ambulatory Limitations: No Limitations - Related Data Previous Rx's Medication Instructions Recorded Last Taken Type Fluticasone [Flonase] 1 spray NS QDAY #1 bottle 04/15/16 Unknown Rx hydroCHLOROthiazide [HCTZ] 25 mg PO QDAY #30 tablet 04/15/16 Unknown Rx Fluticasone [Flonase] 1 spray NS QDAY #1 bottle 06/08/17 Unknown Rx hydroCHLOROthiazide [HCTZ] 25 mg PO QDAY #30 tablet 06/27/17 Unknown Rx lisinopriL [Zestril TAB] 5 mg PO QDAY #31 tablet 06/27/17 Unknown Rx Benzonatate 200 mg PO TID PRN #30 capsule 07/15/17 Unknown Rx Erythromycin [Erythromycin Ophth 10 applic OP QID #1 tube 07/15/17 Unknown Rx Oint] Ibuprofen [Motrin 800 MG tab] 800 mg PO Q8HR PRN #30 tablet 07/15/17 Unknown Rx Prednisolone Acetate/Pf 5 ml OD Q3H #1 bottle 11/06/18 Unknown Rx [Prednisolone Acet 1% Eye Drop] Lidocaine Viscous 2% 5 ml MM Q3H PRN #120 udc 08/25/21 Unknown Rx Allergies Allergy/AdvReac Type Severity Reaction Status Date / Time No Known Allergies Allergy Verified 06/08/17 10:14 ED Review of Systems ROS: Stated complaint: THROAT PAIN Other details as noted in HPI Comment: All other systems reviewed and negative ED Past Medical Hx - Past Medical History Hx Hypertension: Yes Hx Diabetes: Yes (boderline) Hx Psychiatric Treatment: Yes (Depression) - Surgical History Additional Surgical History: Hernia - Social History Smoking Status: Never Smoker Substance Use Type: Marijuana - Medications Home Medications: Home Medications Medication Instructions Recorded Confirmed Last Taken Type Fluticasone [Flonase] 1 spray NS QDAY #1 bottle 04/15/16 Unknown Rx hydroCHLOROthiazide [HCTZ] 25 mg PO QDAY #30 tablet 04/15/16 Unknown Rx Fluticasone [Flonase] 1 spray NS QDAY #1 bottle 06/08/17 Unknown Rx hydroCHLOROthiazide [HCTZ] 25 mg PO QDAY #30 tablet 06/27/17 Unknown Rx lisinopriL [Zestril TAB] 5 mg PO QDAY #31 tablet 06/27/17 Unknown Rx Benzonatate 200 mg PO TID PRN #30 capsule 07/15/17 Unknown Rx Erythromycin [Erythromycin Ophth 10 applic OP QID #1 tube 07/15/17 Unknown Rx Oint] Ibuprofen [Motrin 800 MG tab] 800 mg PO Q8HR PRN #30 tablet 07/15/17 Unknown Rx Prednisolone Acetate/Pf 5 ml OD Q3H #1 bottle 11/06/18 Unknown Rx [Prednisolone Acet 1% Eye Drop] Lidocaine Viscous 2% 5 ml MM Q3H PRN #120 c 08/25/21 Unknown Rx ED Physical Exam - General Limitations: No Limitations General appearance: alert, in no apparent distress - Head Head exam: Present: atraumatic, normocephalic - Eye Eye exam: Present: normal appearance - ENT ENT exam: Present: mucous membranes moist, other - Neck Neck exam: Present: normal inspection, full ROM. Absent: tenderness, meningismus, lymphadenopathy - Respiratory Respiratory exam: Present: normal lung sounds bilaterally. Absent: respiratory distress, wheezes, rales, rhonchi, accessory muscle use, decreased breath sounds - Cardiovascular Cardiovascular Exam: Present: regular rate, normal rhythm. Absent: systolic murmur, diastolic murmur, rubs, gallop - GI/Abdominal GI/Abdominal exam: Present: soft, normal bowel sounds - Rectal Rectal exam: Present: deferred - Extremities Exam Extremities exam: Present: normal inspection, normal capillary refill - Back Exam Back exam: Present: normal inspection. Absent: CVA tenderness (R), CVA tenderness (L) - Neurological Exam Neurological exam: Present: alert, oriented X3, CN II-XII intact, normal gait - Psychiatric Psychiatric exam: Present: normal affect, normal mood - Skin Skin exam: Present: warm, dry, intact, normal color. Absent: rash ED Course Vital Signs 08/25/21 08/25/21 14:38 21:20 Temperature 98.1 F Pulse Rate 96 H 99 H Respiratory 18 14 Rate Blood Pressure 161/106 152/95 [Right] O2 Sat by Pulse 98 100 Oximetry ED Medical Decision Making - Medical Decision Making 36-year-old male with no history of any compromised nontoxic appearance patient is euvolemic with no trismus no airway compromise unable to tolerate p.o. given history and examination low suspicion for this presentation being caused by peritonsillar abscess, Jaspal, bacterial tracheitis, acute HIV, epiglottitis, retropharyngeal abscess. Critical care attestation.: If time is entered above; I have spent that time in minutes in the direct care of this critically ill patient, excluding procedure time. ED Disposition Clinical Impression: Exudative pharyngitis Disposition: HOME / SELF CARE / HOMELESS Is pt being admited?: No Does the pt Need Aspirin: No Condition: Stable Instructions: Pharyngitis, Strep Throat, Adult, Sore Throat, [id number] Prescriptions: Lidocaine Viscous 2% 5 ml MM Q3H PRN #120 udc PRN Reason: Pain, Moderate (4-6) Referrals: [facility] [Provider Group] - 3-5 Days
== END 2021-08-25 23:32 | disposition home or self-care (01) ==
LOC: ED 13:42
DX: J02.9 Acute pharyngitis, unspecified (principal); I10 Essential (primary) hypertension; E11.9 Type 2 diabetes mellitus without complications; F32.9 Major depressive disorder, single episode, unspecified; F12.90 Cannabis use, unspecified, uncomplicated; Z79.899 Other long term (current) drug therapy
CPT/HCPCS: 96372; 99282; J0561; J1100